=== PATIENT | male | born 1990 | race Caucasian/White ===

== ENCOUNTER 2019-07-02 08:22 | Emergency (ER) | payer OTHER ==
--- OUTSIDE RECORDS SUMMARY | 2019-07-02 08:36 | XMS REPORT | Continuity of Care Document ---
:1990 External Reference #:[id number] Author Name Alexandra Alfonso DO Address [address] [place] [address] Care Team Providers Name Role Phone Cindy Mohr MD - Family Care Team Information [place] Supervisor [phone] Medicine Gerry Pierre NP - Nurse Care Team Information [place] Supervisor [phone] Practitioner Problems Active Problems Provider Date Polycythemia vera (clinical) German Tavera DO Onset: 04/04/2018 Secondary polycythemia Alexandra Alfonso DO Onset: 03/25/2019 Low back pain Cindy Mohr MD Onset: 02/02/2015 Hyperlipidemia Rhina Rivero M.D. Onset: 08/15/2017 Testicular hypofunction Rhina Rivero M.D. Onset: 08/15/2017 Localized, primary osteoarthritis of the Alvaro, Adriane, PA Onset: 04/17/2018 hand Abuse of steroids German Tavera DO Onset: 04/25/2018 Hypertensive chronic kidney disease with German Tavera DO Onset: 2017 stage 1 through stage 4 chronic kidney disease, or unspecified chronic kidney disease Other herpesviral infection Gerry Pierre FNP Onset: 05/15/2018 Essential hypertension Gerry Pierre FNP Onset: 11/11/2018 Vitamin B deficiency Alexandra Alfonso DO Onset: 04/14/2019 Vitamin deficiency Alexandra Alfonso DO Onset: 04/14/2019 Hypertrophy of nasal turbinates Alexandra Alfonso DO Onset: 05/27/2019 Resolved Problems Chest pain Isatu Hollis M.D. Onset: 01/05/2019 Resolved: 05/07/2019 Human immunodeficiency virus counseling Isatu Hollis M.D. Onset: 01/05/2019 Resolved: 05/07/2019 Social History Type Date Description Comments Sex Unknown Tobacco Use Start: Unknown Currently smokes 1-5 Cigarettes Daily ETOH Use Denies alcohol use Recreational Drug Use Denies Drug Use Tobacco Use Start: Unknown Light tobacco smoker (10 or fewer cigarettes/day) Smoking Status Reviewed: 01/05/19 Light tobacco smoker (10 or fewer cigarettes/day) Allergies, Adverse Reactions, Alerts Active Allergies Reaction Severity Comments Date NKDA 01/24/2015 Pollen 03/25/2018 Medications Active Medications SIG Qnty Indications Ordering Provider Date Valtrex take one tab by 14tabs B00.89 Gabby, 07/09/2018 1gm Tablets mouth twice daily Gerry, for 7 days as [employer] needed for outbreaks Truvada 1 by mouth every 30tabs Isatu Hollis M.D. 04/07/2018 200-300mg day Tablets Medications Administered in Office Medication SIG Qnty Indications Ordering Provider Date Vitamin B12 Injection 1000 StefaniAlexandra chauhan, DO 04/14/2019 mcg/Ml Injection Immunizations CPT Code Status Date Vaccine Lot # [id number] Given 03/09/2013 Gardasil 54936 Given 07/30/2012 Gardasil [id number] Given 07/19/2011 Gardasil Vital Signs Date Vital Result Comment 05/27/2019 10:44am BP Systolic 135 mmHg BP Diastolic 92 mmHg Body Temperature 98.3 F Heart Rate 101 /min Respiratory Rate 18 /min Weight 219.12 lb Pain Level 0 O2 % BldC Oximetry 97 % 04/14/2019 4:02pm BP Systolic 138 mmHg BP Diastolic 84 mmHg Body Temperature 98.0 F Heart Rate 88 /min Respiratory Rate 18 /min Weight 213.50 lb Pain Level 0 O2 % BldC Oximetry 97 % Results Test Acquired Date Facility Test Result H/L Range Note CBC 05/27/2019 [facility] White Blood 8.0 K/uL Normal 3.4-10.5 1 W/Automated [address] [place] [address] [phone] Red Blood Count 6.63 M/uL High 4.20-5.80 Hemoglobin 17.4 gm/dL High 12.8-17.0 Hematocrit 55.1 % High 38.0-48.0 Mean Cell Volume 83.1 fl Normal 80.0-96.0 Mean Corpuscular HGB 26.2 pg Low 27.0-33.0 Mean Corpuscular HGB Conc 31.6 g/dL Low 31.7-36.0 Platelet Count 346 K/uL Normal 155-360 Red Cell Distri Width SD 46.5 fl Normal 36-51 Red Cell Distri Width %CV 17.2 % High 11.6-15.8 Mean Platelet Volume 10.2 fl Normal 6.6-10.6 Neut% 57.9 % Normal 33.0-73.0 Lymph % 26.7 % Normal 20.0-42.0 [place] % 11.4 % High 0.0-10.0 Eo% 3.0 % Normal 0.0-6.6 Bas% 0.6 % Normal 0.0-1.1 Immature Grans 0.4 % Normal 0.0-5.0 NRBC % 0.0 /100WBC < 10/ 100 WBC Neut# 4.60 K/uL Normal 1.8-7.0 Lymph # 2.12 K/uL Normal 1.0-4.0 [place] # 0.91 K/uL High 0.0-0.8 Eos # 0.24 K/uL Normal 0.0-0.5 Baso # 0.05 K/uL Normal 0.0-0.1 Immature Grans Absolute 0.03 K/uL NRBC # 0.00 K/uL Laboratory test 05/27/2019 [facility] Sedimentation Rate <pending> finding [address] [place] [address] [phone] Erythropoietin (Epo), Serum 9.7 mIU/mL 2.6-18.5 2 LDH 145 U/L Normal 87-241 Thyroid Stim Hormone 2.67 uIU/mL Normal 0.30-4.20 Sedimentation Rate,Manual 0 mm/hr Normal 0-15 CBC W/Automated 05/07/2019 [facility] White Blood 8.6 K/uL Normal 3.4-10.5 [address] [place] [address] [phone] Red Blood Count 6.22 M/uL High 4.20-5.80 Hemoglobin 16.4 gm/dL Normal 12.8-17.0 Hematocrit 50.9 % High 38.0-48.0 Mean Cell Volume 81.8 fl Normal 80.0-96.0 Mean Corpuscular HGB 26.4 pg Low 27.0-33.0 Mean Corpuscular HGB Conc 32.2 g/dL Normal 31.7-36.0 Platelet Count 383 K/uL High 155-360 Red Cell Distri Width SD 38.8 fl Normal 36-51 Red Cell Distri Width %CV 13.4 % Normal 11.6-15.8 Mean Platelet Volume 9.4 fl Normal 6.6-10.6 Neut% 59.3 % Normal 33.0-73.0 Lymph % 27.8 % Normal 20.0-42.0 [place] % 8.4 % Normal 0.0-10.0 Eo% 3.4 % Normal 0.0-6.6 Bas% 0.5 % Normal 0.0-1.1 Immature Grans 0.6 % Normal 0.0-5.0 NRBC % 0.0 /100WBC < 10/ 100 WBC Neut# 5.12 K/uL Normal 1.8-7.0 Lymph # 2.40 K/uL Normal 1.0-4.0 [place] # 0.72 K/uL Normal 0.0-0.8 Eos # 0.29 K/uL Normal 0.0-0.5 Baso # 0.04 K/uL Normal 0.0-0.1 Immature Grans Absolute 0.05 K/uL NRBC # 0.00 K/uL [facility] 05/07/2019 [facility] Glucose 102 mg/dL Normal 74-106 Metabolic Panel [address] [place] [address] [phone] BUN 9 mg/dL Normal 7-18 Creatinine 1.3 mg/dL Normal 0.6-1.3 Glom Filtration Rate, Estimate >60 mL/min >60 If >60 mL/min >60 4 BUN/Creat 6.9 ratio Sodium 140 mmol/L Normal 136-145 Potassium 3.9 mmol/L Normal 3.5-5.1 Chloride 110 mmol/L High 98-107 Carbon Dioxide 26 mmol/L Normal 21-32 Anion Gap 4 mEq/L Low 8-16 Calcium 8.4 mg/dL Low 8.5-10.1 Total Protein 6.6 g/dL Normal 6.4-8.2 Albumin 3.5 g/dL Normal 3.4-5.0 Globulin 3.1 g/dL Normal 1.9-4.3 Alb/Glob 1.1 ratio Bilirubin,Total 0.6 mg/dL Normal 0.2-1.0 Sgot/Ast 29 U/L Normal 15-37 SGPT/Alt 91 U/L High 12-78 Alkaline Phosphatase 46 U/L Normal 45-117 Laboratory test finding 05/07/2019 [facility] Troponin-I < 0.015 ng/mL 5 [address] [place] [address] [phone] Thyroid Stim Hormone 2.09 uIU/mL Normal 0.30-4.20 CBC 04/14/2019 [facility] White Blood Count 9.5 K/uL Normal 3.4-10.5 6 [address] [place] [address] [phone] Red Blood Count 5.80 M/uL Normal 4.20-5.80 Hemoglobin 16.0 gm/dL Normal 12.8-17.0 Hematocrit 49.1 % High 38.0-48.0 Mean Cell Volume 84.7 fl Normal 80.0-96.0 Mean Corpuscular HGB 27.6 pg Normal 27.0-33.0 Mean Corpuscular HGB Conc 32.6 g/dL Normal 31.7-36.0 Platelet Count 354 K/uL Normal 155-360 Red Cell Distri Width SD 37.0 fl Normal 36-51 Red Cell Distri Width %CV 12.3 % Normal 11.6-15.8 Mean Platelet Volume 10.1 fl Normal 6.6-10.6 NRBC % 0.0 /100WBC < 10/ 100 WBC Iron-Tibc-%Sat 04/14/2019 [facility] Serum Iron 23 g/dL Low 65-175 [address] [place] [address] [phone] Total Iron Binding Capacity 396 g/dL Normal 250-450 Transferrin %Saturation 6 % Low 12-57 Vitamin B12 And 04/14/2019 [facility] Vitamin B12 582 pg/mL Normal 193-986 Folate [address] [place] [address] [phone] Folic Acid 9.9 ng/mL Normal 3.1-17.5 Laboratory test 04/14/2019 [facility] Ferritin 10 ng/mL Low 26-388 finding [address] [place] [address] [phone] Comprehensive 04/14/2019 [facility] Glucose 112 mg/dL High 74-106 Metabolic Panel [address] [place] [address] [phone] BUN 9 mg/dL Normal 7-18 Creatinine 1.5 mg/dL High 0.6-1.3 Glom Filtration Rate, Estimate 58 mL/min >60 If >60 mL/min >60 7 BUN/Creat 6.0 ratio Sodium 140 mmol/L Normal 136-145 Potassium 3.4 mmol/L Low 3.5-5.1 Chloride 108 mmol/L High 98-107 Carbon Dioxide 27 mmol/L Normal 21-32 Anion Gap 5 mEq/L Low 8-16 Calcium 8.3 mg/dL Low 8.5-10.1 Total Protein 6.8 g/dL Normal 6.4-8.2 Albumin 3.7 g/dL Normal 3.4-5.0 Globulin 3.1 g/dL Normal 1.9-4.3 Alb/Glob 1.2 ratio Bilirubin,Total 0.3 mg/dL Normal 0.2-1.0 Sgot/Ast 18 U/L Normal 15-37 SGPT/Alt 32 U/L Normal 12-78 Alkaline Phosphatase 50 U/L Normal 45-117 Laboratory test 03/25/2019 [facility] Gamma Glutamyl 32 U/L Normal 5-85 8 finding [address] [place] [address] [phone] Erythropoietin (Epo), Serum 17.8 mIU/mL 2.6-18.5 9 Comprehensive 03/25/2019 [facility] Glucose 99 mg/dL Normal 74-106 Metabolic Panel [address] [place] [address] [phone] BUN 11 mg/dL Normal 7-18 Creatinine 1.3 mg/dL Normal 0.6-1.3 Glom Filtration Rate, Estimate >60 mL/min >60 If >60 mL/min >60 10 BUN/Creat 8.4 ratio Sodium 137 mmol/L Normal 136-145 Potassium 3.9 mmol/L Normal 3.5-5.1 Chloride 107 mmol/L Normal 98-107 Carbon Dioxide 25 mmol/L Normal 21-32 Anion Gap 5 mEq/L Low 8-16 Calcium 8.7 mg/dL Normal 8.5-10.1 Total Protein 6.9 g/dL Normal 6.4-8.2 Albumin 3.8 g/dL Normal 3.4-5.0 Globulin 3.1 g/dL Normal 1.9-4.3 Alb/Glob 1.2 ratio Bilirubin,Total 0.4 mg/dL Normal 0.2-1.0 Sgot/Ast 22 U/L Normal 15-37 SGPT/Alt 60 U/L Normal 12-78 Alkaline Phosphatase 52 U/L Normal 45-117 Laboratory 03/25/2019 [facility] Vitamin 35.9 30.0-100.0 11 test finding [address] D,25-Hydroxy ng/[place] [address] [phone] Vitamin B12 03/25/2019 [facility] Vitamin B12 492 Normal 193-[address] pg/[place] [address] [phone] Folic Acid 7.5 ng/mL Normal 3.1-17.5 CBC W/Automated 03/25/2019 [facility] White Blood 11.1 K/uL High 3.4-10.[address] [place] [address] [phone] Red Blood Count 5.69 M/uL Normal 4.20-5.80 Hemoglobin 16.0 gm/dL Normal 12.8-17.0 Hematocrit 50.0 % High 38.0-48.0 Mean Cell Volume 87.9 fl Normal 80.0-96.0 Mean Corpuscular HGB 28.1 pg Normal 27.0-33.0 Mean Corpuscular HGB Conc 32.0 g/dL Normal 31.7-36.0 Platelet Count 268 K/uL Normal 155-360 Red Cell Distri Width SD 39.4 fl Normal 36-51 Red Cell Distri Width %CV 12.2 % Normal 11.6-15.8 Mean Platelet Volume 10.6 fl Normal 6.6-10.6 Neut% 70.9 % Normal 33.0-73.0 Lymph % 17.5 % Low 20.0-42.0 [place] % 8.5 % Normal 0.0-10.0 Eo% 2.3 % Normal 0.0-6.6 Bas% 0.4 % Normal 0.0-1.1 Immature Grans 0.4 % Normal 0.0-5.0 NRBC % 0.0 /100WBC < 10/ 100 WBC Neut# 7.88 K/uL High 1.8-7.0 Lymph # 1.94 K/uL Normal 1.0-4.0 [place] # 0.94 K/uL High 0.0-0.8 Eos # 0.26 K/uL Normal 0.0-0.5 Baso # 0.04 K/uL Normal 0.0-0.1 Immature Grans Absolute 0.04 K/uL NRBC # 0.00 K/uL Reticulocyte 03/25/2019 [facility] Retic 28.5 pg Normal 27.9-37.0 Count,Automated [address] [facility] [place] [place] [address] [phone] Retic % 1.7 % Normal 0.8-2.1 Absolute Retic 97 K/uL High 24-84 Immature Retic Fraction 16.1 % High 2.9-15.5 Laboratory test 03/25/2019 [facility] Ferritin 13 ng/mL Low 26-388 finding [address] [place] [address] [phone] Iron-Tibc-%Sat 03/25/2019 [facility] Serum Iron 32 g/dL Low 65-175 [address] [place] [address] [phone] Total Iron Binding Capacity 456 g/dL High 250-450 Transferrin %Saturation 7 % Low 12-57 Laboratory test 03/25/2019 [facility] LDH 147 U/L Normal 87-241 finding [address] [place] [address] [phone] Testosterone,Free 03/25/2019 [facility] Testostero >1500 High 264-916 12 /Weakly Bound [address] ne,Serum ng/[place] [address] [phone] Testosterone,%Free/Weakly BND 68.3 % High 9.0-46.0 13 Testosterone,Free Weakly Bound (SEE NOTE) ng/dL 40.0-250.0 14 Laboratory test 03/19/2019 [facility] Ferritin 13 ng/mL Low 26-388 15, 16 finding [address] [place] [address] [phone] Iron-Tibc-%Sat 03/19/2019 [facility] Serum Iron 33 g/dL Low 65-175 [address] [place] [address] [phone] Total Iron Binding Capacity 438 g/dL Normal 250-450 Transferrin %Saturation 8 % Low 12-57 Laboratory test 03/19/2019 [facility] Ferritin <pending> finding [address] [place], [place] [address] [phone] CBC W/Automated 03/19/2019 [facility] White Blood 6.3 K/uL Normal 3.4-1 Diff [address] [place] Count 0.5 [place] [address] [phone] Red Blood Count 5.99 M/uL High 4.20-5.80 Hemoglobin 17.4 gm/dL High 12.8-17.0 Hematocrit 53.8 % High 38.0-48.0 Mean Cell Volume 89.8 fl Normal 80.0-96.0 Mean Corpuscular HGB 29.0 pg Normal 27.0-33.0 Mean Corpuscular HGB Conc 32.3 g/dL Normal 31.7-36.0 Platelet Count 369 K/uL High 155-360 Red Cell Distri Width SD 41.1 fl Normal 36-51 Red Cell Distri Width %CV 12.4 % Normal 11.6-15.8 Mean Platelet Volume 10.2 fl Normal 6.6-10.6 Neut% 58.4 % Normal 33.0-73.0 Lymph % 29.3 % Normal 20.0-42.0 [place] % 9.0 % Normal 0.0-10.0 Eo% 2.5 % Normal 0.0-6.6 Bas% 0.5 % Normal 0.0-1.1 Immature Grans 0.3 % Normal 0.0-5.0 NRBC % 0.0 /100WBC < 10/ 100 WBC Neut# 3.69 K/uL Normal 1.8-7.0 Lymph # 1.85 K/uL Normal 1.0-4.0 [place] # 0.57 K/uL Normal 0.0-0.8 Eos # 0.16 K/uL Normal 0.0-0.5 Baso # 0.03 K/uL Normal 0.0-0.1 Immature Grans Absolute 0.02 K/uL NRBC # 0.00 K/uL Hemoglobin/Hematocrit 03/12/2019 [facility] Hemoglobin 17.8 High 12.8-17.[address] gm/[place] [address] [phone] Hematocrit 55.3 % High 38.0-48.0 Laboratory test 03/05/2019 [facility] Ferritin 16 ng/mL Low 26-388 finding [address] [place] [address] [phone] Iron-Tibc-%Sat 03/05/2019 [facility] Serum Iron 28 g/dL Low 65-175 [address] [place], [place] [address] [phone] Total Iron Binding Capacity 404 g/dL Normal 250-450 Transferrin %Saturation 7 % Low 12-57 HIV Screen 4TH 03/04/2019 [facility] HIV Screen Non Non 17, 18 Gen Reflex [address] 4th [place] [address] Generation [phone] wRfx Hepatitis 03/04/2019 [facility] Hepatitis A Negative Negative Evaluation [address] [place] [address] [phone] HBsAg Screen [Ref Lab] Negative Negative Hepatitis B Core IgM Negative Negative HCV Signal/Cutoff ratio 0.1 s/corat 0.0-0.9 19 Liver Function 03/04/2019 [facility] Total Protein 7.0 g/dL Normal 6.4-8.[address] [place], [place] [address] [phone] Albumin 3.6 g/dL Normal 3.4-5.0 Globulin 3.4 g/dL Normal 1.9-4.3 Alb/Glob 1.1 ratio Bilirubin,Total 0.5 mg/dL Normal 0.2-1.0 Bilirubin,Direct 0.1 mg/dL Normal 0.0-0.2 Bilirubin,Indirect 0.4 mg/dL Normal 0.0-0.9 Sgot/Ast 53 U/L High 15-37 SGPT/Alt 106 U/L High 12-78 Alkaline Phosphatase 50 U/L Normal 45-117 CBC W/Automated 03/04/2019 [facility] White Blood 10.8 K/uL High 3.4-10.[address] [place] [address] [phone] Red Blood Count 6.15 M/uL High 4.20-5.80 Hemoglobin 18.0 gm/dL High 12.8-17.0 Hematocrit 56.1 % High 38.0-48.0 Mean Cell Volume 91.2 fl Normal 80.0-96.0 Mean Corpuscular HGB 29.3 pg Normal 27.0-33.0 Mean Corpuscular HGB Conc 32.1 g/dL Normal 31.7-36.0 Platelet Count 343 K/uL Normal 155-360 Red Cell Distri Width SD 41.1 fl Normal 36-51 Red Cell Distri Width %CV 12.3 % Normal 11.6-15.8 Mean Platelet Volume 9.5 fl Normal 6.6-10.6 Neut% 76.5 % High 33.0-73.0 Lymph % 15.1 % Low 20.0-42.0 [place] % 6.5 % Normal 0.0-10.0 Eo% 1.2 % Normal 0.0-6.6 Bas% 0.2 % Normal 0.0-1.1 Immature Grans 0.5 % Normal 0.0-5.0 NRBC % 0.0 /100WBC < 10/ 100 WBC Neut# 8.30 K/uL High 1.8-7.0 Lymph # 1.63 K/uL Normal 1.0-4.0 [place] # 0.70 K/uL Normal 0.0-0.8 Eos # 0.13 K/uL Normal 0.0-0.5 Baso # 0.02 K/uL Normal 0.0-0.1 Immature Grans Absolute 0.05 K/uL NRBC # 0.00 K/uL Comprehensive Metabolic 03/04/2019 [facility] Glucose 110 mg/dL High 74-[address] [place] [address] [phone] BUN 8 mg/dL Normal 7-18 Creatinine 1.5 mg/dL High 0.6-1.3 Glom Filtration Rate, Estimate 58 mL/min >60 If >60 mL/min >60 20 BUN/Creat 5.3 ratio Sodium 138 mmol/L Normal 136-145 Potassium 3.8 mmol/L Normal 3.5-5.1 Chloride 105 mmol/L Normal 98-107 Carbon Dioxide 25 mmol/L Normal 21-32 Anion Gap 8 mEq/L Normal 8-16 Calcium 8.7 mg/dL Normal 8.5-10.1 Chlam/GC/Trichomonas 03/04/2019 [facility] Ur Trichomonas NEGATIVE Negative PCR, Ur [address] vaginalis,[place] [address] [phone] Ur Chlamydia trachomatis,PCR Negative Negative Ur Neisseria gonorrhoeae,PCR Negative Negative 21 CBC W/Automated 02/19/2019 [facility] White 5.9 K/uL Normal 3.4-10.[address] [place] [address] Count [phone] Red Blood Count 6.02 M/uL High 4.20-5.80 Hemoglobin 18.4 gm/dL High 12.8-17.0 Hematocrit 54.9 % High 38.0-48.0 Mean Cell Volume 91.2 fl Normal 80.0-96.0 Mean Corpuscular HGB 30.6 pg Normal 27.0-33.0 Mean Corpuscular HGB Conc 33.5 g/dL Normal 31.7-36.0 Platelet Count 331 K/uL Normal 155-360 Red Cell Distri Width SD 41.8 fl Normal 36-51 Red Cell Distri Width %CV 12.5 % Normal 11.6-15.8 Mean Platelet Volume 9.5 fl Normal 6.6-10.6 Neut% 58.0 % Normal 33.0-73.0 Lymph % 27.3 % Normal 20.0-42.0 [place] % 9.9 % Normal 0.0-10.0 Eo% 4.0 % Normal 0.0-6.6 Bas% 0.5 % Normal 0.0-1.1 Immature Grans 0.3 % Normal 0.0-5.0 NRBC % 0.0 /100WBC < 10/ 100 WBC Neut# 3.44 K/uL Normal 1.8-7.0 Lymph # 1.62 K/uL Normal 1.0-4.0 [place] # 0.59 K/uL Normal 0.0-0.8 Eos # 0.24 K/uL Normal 0.0-0.5 Baso # 0.03 K/uL Normal 0.0-0.1 Immature Grans Absolute 0.02 K/uL NRBC # 0.00 K/uL Comprehensive Metabolic 02/19/2019 [facility] Glucose 118 mg/dL High 74-[address] [place] [address] [phone] BUN 9 mg/dL Normal 7-18 Creatinine 1.3 mg/dL Normal 0.6-1.3 Glom Filtration Rate, Estimate >60 mL/min >60 If >60 mL/min >60 23 BUN/Creat 6.9 ratio Sodium 139 mmol/L Normal 136-145 Potassium 3.8 mmol/L Normal 3.5-5.1 Chloride 110 mmol/L High 98-107 Carbon Dioxide 23 mmol/L Normal 21-32 Anion Gap 6 mEq/L Low 8-16 Calcium 8.7 mg/dL Normal 8.5-10.1 Total Protein 6.9 g/dL Normal 6.4-8.2 Albumin 3.6 g/dL Normal 3.4-5.0 Globulin 3.3 g/dL Normal 1.9-4.3 Alb/Glob 1.1 ratio Bilirubin,Total 0.4 mg/dL Normal 0.2-1.0 Sgot/Ast 40 U/L High 15-37 SGPT/Alt 97 U/L High 12-78 Alkaline Phosphatase 58 U/L Normal 45-117 Laboratory test 02/19/2019 [facility] Troponin-I < 0.015 [address] ng/[place] [address] [phone] CBC W/Automated 01/06/2019 [facility] White Blood 9.4 K/uL Normal 3.4-[address] Count 0.5 [place] [address] [phone] Red Blood Count 5.27 M/uL Normal 4.20-5.80 Hemoglobin 16.4 gm/dL Normal 12.8-17.0 Hematocrit 46.0 % Normal 38.0-48.0 Mean Cell Volume 87.3 fl Normal 80.0-96.0 Mean Corpuscular HGB 31.1 pg Normal 27.0-33.0 Mean Corpuscular HGB Conc 35.7 g/dL Normal 31.7-36.0 Platelet Count 284 K/uL Normal 155-360 Red Cell Distri Width SD 43.0 fl Normal 36-51 Red Cell Distri Width %CV 13.7 % Normal 11.6-15.8 Mean Platelet Volume 9.8 fl Normal 6.6-10.6 Neut% 65.7 % Normal 33.0-73.0 Lymph % 23.7 % Normal 20.0-42.0 [place] % 8.3 % Normal 0.0-10.0 Eo% 1.8 % Normal 0.0-6.6 Bas% 0.3 % Normal 0.0-1.1 Immature Grans 0.2 % Normal 0.0-5.0 NRBC % 0.0 /100WBC < 10/ 100 WBC Neut# 6.17 K/uL Normal 1.8-7.0 Lymph # 2.23 K/uL Normal 1.0-4.0 [place] # 0.78 K/uL Normal 0.0-0.8 Eos # 0.17 K/uL Normal 0.0-0.5 Baso # 0.03 K/uL Normal 0.0-0.1 Immature Grans Absolute 0.02 K/uL NRBC # 0.00 K/uL Iron-Tibc-%Sat 01/06/2019 [facility] Serum Iron 56 g/dL Low 65-175 [address] [place], [place] [address] [phone] Total Iron Binding Capacity 283 g/dL Normal 250-450 Transferrin %Saturation 20 % Normal 12-57 Laboratory test 01/06/2019 [facility] Ferritin 168 ng/mL Normal 26-388 finding [address] [place], [place] [address] [phone] Comprehensive 01/06/2019 [facility] Glucose 108 mg/dL High 74-106 Metabolic Panel [address] [place] [address] [phone] BUN 13 mg/dL Normal 7-18 Creatinine 1.1 mg/dL Normal 0.6-1.3 Glom Filtration Rate, Estimate >60 mL/min >60 If >60 mL/min >60 26 BUN/Creat 11.8 ratio Sodium 140 mmol/L Normal 136-145 Potassium 3.3 mmol/L Low 3.5-5.1 Chloride 107 mmol/L Normal 98-107 Carbon Dioxide 27 mmol/L Normal 21-32 Anion Gap 6 mEq/L Low 8-16 Calcium 8.6 mg/dL Normal 8.5-10.1 Total Protein 7.1 g/dL Normal 6.4-8.2 Albumin 3.9 g/dL Normal 3.4-5.0 Globulin 3.2 g/dL Normal 1.9-4.3 Alb/Glob 1.2 ratio Bilirubin,Total 0.8 mg/dL Normal 0.2-1.0 Sgot/Ast 19 U/L Normal 15-37 SGPT/Alt 44 U/L Normal 12-78 Alkaline Phosphatase 58 U/L Normal 45-117 1 D75.1 F55.3 E56.8 2 [employer] DxI 800 Immunoassay System Values obtained with different assay methods or kits cannot be used interchangeably. Results cannot be interpreted as absolute evidence of the presence or absence of malignant disease. Performed at: - [facility] [id number] Power Technician: Amarilys Espinoza MD, Phone: [phone] POLYCYTHEMIA, HEAD/FACE PRESSURE 4 Note: Persistent reduction for 3 months or more in an eGFR <60 mL/min/1.73 m2 defines CKD. Patients with eGFR values >/=60 mL/min/1.73 m2 may also have CKD if evidence of persistent proteinuria is present. The original MDRD equation for estimated GFR is not valid for patients less than 18 years of age. Additional information may be found at www.kdoqi.org. 5 0.0 - 0.045 ng/mL: Normal 0.046 - 0.5 ng/mL: Suggestive 0.6 - 1.5 ng/mL: Consistent 6 D75.1 7 Note: Persistent reduction for 3 months or more in an eGFR <60 mL/min/1.73 m2 defines CKD. Patients with eGFR values >/=60 mL/min/1.73 m2 may also have CKD if evidence of persistent proteinuria is present. The original MDRD equation for estimated GFR is not valid for patients less than 18 years of age. Additional information may be found at www.[email or web address]. 8 D45 R07.89 R22.9 9 [employer] DxI 800 Immunoassay System Values obtained with different assay methods or kits cannot be used interchangeably. Results cannot be interpreted as absolute evidence of the presence or absence of malignant disease. Performed at: [facility] [id number] Power Technician: Amarilys Espinoza MD, Phone: [phone] Performed at: [facility] [id number] Power Technician: Rashaun Lorenzo MD, Phone: [phone] 10 Note: Persistent reduction for 3 months or more in an eGFR <60 mL/min/1.73 m2 defines CKD. Patients with eGFR values >/=60 mL/min/1.73 m2 may also have CKD if evidence of persistent proteinuria is present. The original MDRD equation for estimated GFR is not valid for patients less than 18 years of age. Additional information may be found at www.[email or web address]. 11 Vitamin D deficiency has been defined by the [place] [employer] and an Endocrine Society practice guideline as a level of serum 25-OH vitamin D less than 20 ng/mL (1,2). The Endocrine Society went on to further define vitamin D insufficiency as a level between 21 and 29 ng/mL (2). 1. IOM ([place] [employer]). 2010. Dietary reference intakes for calcium and D. [place]: The National Academies Press. 2. Bola MF, Hair NC, Loy DRISCOLL, et al. Evaluation, treatment, and prevention of vitamin D deficiency: an Endocrine Society clinical practice guideline. JCEM. 2010; 96(7):1911-30. Performed at: [facility] [id number] Power Technician: Amarilys Espinoza MD, Phone: [phone] 12 Adult male reference interval is based on a population of healthy nonobese males (BMI <30) between 19 and 39 years old. Eric, et.al. JCEM 2017,102;9112-7245. PMID: 92624406. 13 Results verified by repeat testing This test was developed and its performance characteristics determined by [employer]. It has not been cleared or approved by the Food and Drug Administration. 14 >999.9 Calculated value greater than reporting limitations. [address] ALFONSO 17 Z71.7 (R74.0 D45) 18 Performed at: [facility] [address] [id number] Power Technician: Amarilys Espinoza MD, Phone: [phone] 19 INFCE Result Units: s/co ratio Negative: < 0.8 Indeterminate: 0.8 - 0.9 Positive: > 0.9 The CDC recommends that a positive HCV antibody result be followed up with a HCV Nucleic Acid Amplification test (641004). Performed at: - [facility] [address] [id number] Power Technician: Amarilys Espinoza MD, Phone: [phone] 20 Note: Persistent reduction for 3 months or more in an eGFR <60 mL/min/1.73 m2 defines CKD. Patients with eGFR values >/=60 mL/min/1.73 m2 may also have CKD if evidence of persistent proteinuria is present. The original MDRD equation for estimated GFR is not valid for patients less than 18 years of age. Additional information may be found at www.kdoqi.org. 21 A negative result for either C. trachomatis and/or N. gonorrhoeae does not preclued an infection because results are dependent on adequate specimen collection, absence of inhibitors, and sufficient DNA to be detected. 22 CP,SOB, PRESSURE IN NECK 23 Note: Persistent reduction for 3 months or more in an eGFR <60 mL/min/1.73 m2 defines CKD. Patients with eGFR values >/=60 mL/min/1.73 m2 may also have CKD if evidence of persistent proteinuria is present. The original MDRD equation for estimated GFR is not valid for patients less than 18 years of age. Additional information may be found at www.kdoqi.org. 24 0.0 - 0.045 ng/mL: Normal 0.046 - 0.5 ng/mL: Suggestive 0.6 - 1.5 ng/mL: Consistent 25 D45 26 Note: Persistent reduction for 3 months or more in an eGFR <60 mL/min/1.73 m2 defines CKD. Patients with eGFR values >/=60 mL/min/1.73 m2 may also have CKD if evidence of persistent proteinuria is present. The original MDRD equation for estimated GFR is not valid for patients less than 18 years of age. Additional information may be found at www.kdoqi.org. 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 Alexandra Alfonso, DO 04/14/2019 E53.9 Vitamin B deficiency Alexandra Alfonso, DO 04/14/2019 E56.8 Vitamin deficiency Alexandra Alfonso, DO 03/25/2019 D75.1 Secondary polycythemia Alexandra Alfonso, DO 03/25/2019 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 01/05/2019 Anita Polycythemia vera Isatu Hollis M.D. 01/05/2019 F32.89 Other specified depressive episodes Isatu Hollis M.D. 01/05/2019 Z71.7 Human immunodeficiency virus [HIV] Isatu Hollis M.D. counseling Plan of Treatment Future Appointment(s):06/05/2019 8:30 am - Infusion Chair 7 at Infusion Hgadzc5307/07/2019 1:30 pm - Gerry Pierre FNP at [facility] Functional Status Functional Condition Comment Date Status Independent with all ADL's Active Mental Status Description No Information Available Referrals Refer to Dr Reason for Referral Status Appt Date Steven Roy MD CHANGE IN VISION Sent 06/01/2019 [address] [place] [address] [phone] Wild Cates MD FACC Closed 03/10/[address] [place] [address] [phone]
--- OUTSIDE RECORDS SUMMARY | 2019-07-02 08:36 | XMS REPORT | Continuity of Care Document ---
:1990 External Reference #:[id number] Author Name Steven Roy MD Address [address] [place] [address] Care Team Providers Name Role Phone Cindy Mohr MD - Family Care Team Information Security Inspector [phone] Medicine Gerry Pierre NP - Nurse Care Team Information Security Inspector Practitioner Problems Active Problems Provider Date Polycythemia vera (clinical) German Tavera DO Onset: 04/04/2018 Secondary polycythemia Alexandra Alfonso DO Onset: 03/25/2019 Low back pain Cindy Mohr MD Onset: 02/02/2015 Hyperlipidemia Rhina Rivero M.D. Onset: 08/15/2017 Testicular hypofunction Rhina Rivero M.D. Onset: 08/15/2017 Localized, primary osteoarthritis of the AlvaroAdriane, PA Onset: 04/17/2018 hand Abuse of steroids [...] (10 or fewer cigarettes/day) Smoking Status Reviewed: 06/01/19 Light tobacco smoker (10 or fewer cigarettes/day) Allergies, Adverse Reactions, Alerts Active Allergies Reaction Severity Comments Date NKDA 01/24/2015 Pollen 03/25/2018 Medications Active Medications SIG Qnty Indications Ordering Provider Date Valtrex take one tab by 14tabs B00.89 Gabby, 07/09/2018 1gm Tablets mouth twice daily Gerry, for 7 days as SAMPLE PATTERNMAKER needed for outbreaks Truvada 1 by mouth every 30tabs Isatu Hollis M.D. 04/07/2018 200-300mg day Tablets Medications Administered in Office Medication SIG Qnty Indications Ordering Provider Date Vitamin B12 Injection 1000 Alexandra Alfonso, DO 04/14/2019 mcg/Ml Injection Immunizations CPT Code Status Date Vaccine Lot # [id number] Given 03/09/2013 Gardasil 80669 Given 07/30/2012 Gardasil 08866 Given 07/19/2011 Gardasil Vital Signs Date Vital [...] 1 W/Automated [address] [place] [address] [phone] Red Blood Count 6.63 M/uL High 4.20-5.80 [...] 33.0-73.0 Lymph % 26.7 % Normal 20.0-42.0 [place] % 11.4 % High 0.0-10.0 Eo% 3.0 % Normal 0.0-6.6 Bas% 0.6 % Normal 0.0-1.1 Immature Grans 0.4 % Normal 0.0-5.0 NRBC % 0.0 /100WBC < 10/ 100 WBC Neut# 4.60 K/uL Normal 1.8-7.0 Lymph # 2.12 K/uL Normal 1.0-4.0 [place] # 0.91 K/uL High 0.0-0.8 Eos # 0.24 K/uL Normal 0.0-0.5 Baso # 0.05 K/uL Normal 0.0-0.1 Immature Grans Absolute 0.03 K/uL NRBC # 0.00 K/uL Laboratory test 05/27/2019 [facility] Sedimentation Rate <pending> finding [address] [place] [address] [phone] Erythropoietin (Epo), Serum 9.7 mIU/mL 2.6-18.5 2 LDH 145 U/L Normal 87-241 Thyroid Stim Hormone 2.67 uIU/mL Normal 0.30-4.20 Sedimentation Rate,Manual 0 mm/hr Normal 0-15 CBC W/Automated 05/07/2019 [facility] White Blood 8.6 K/uL Normal 3.4-10.[address] [place] [address] [phone] Red Blood Count 6.22 M/uL High 4.20-5.80 [...] 33.0-73.0 Lymph % 27.8 % Normal 20.0-42.0 [place]oughton % 8.4 % Normal 0.0-10.0 Eo% 3.4 % Normal 0.0-6.6 Bas% 0.5 % Normal 0.0-1.1 Immature Grans 0.6 % Normal 0.0-5.0 NRBC % 0.0 /100WBC < 10/ 100 WBC Neut# 5.12 K/uL Normal 1.8-7.0 Lymph # 2.40 K/uL Normal 1.0-4.0 [place]oughton # 0.72 K/uL Normal 0.0-0.8 Eos # 0.29 K/uL Normal 0.0-0.5 Baso # 0.04 K/uL Normal 0.0-0.1 Immature Grans Absolute 0.05 K/uL NRBC # 0.00 K/uL [facility] 05/07/2019 [facility] Glucose 102 mg/dL Normal 74-106 Metabolic Panel [address] [place], [place] [address] [phone] BUN 9 mg/dL Normal 7-18 Creatinine 1.3 [...] U/L Normal 45-117 Laboratory test finding 05/07/2019 [facility] Troponin-I < 0.015 ng/mL 5 [address] [place] [address] [phone] Thyroid Stim Hormone 2.09 uIU/mL Normal 0.30-4.20 CBC 04/14/2019 [facility] White Blood Count 9.5 K/uL Normal 3.4-10.5 6 [address] [place] [address] [phone] Red Blood Count 5.80 M/uL Normal 4.20-5.80 [...] /100WBC < 10/ 100 WBC Iron-Tibc-%Sat 04/14/2019 [facility] Serum Iron 23 g/dL Low 65-175 [address] [place] [address] [phone] Total Iron Binding Capacity 396 g/dL Normal 250-450 Transferrin %Saturation 6 % Low 12-57 Vitamin B12 And 04/14/2019 [facility] Vitamin B12 582 pg/mL Normal 193-986 Folate [address] [place] [address] [phone] Folic Acid 9.9 ng/mL Normal 3.1-17.5 Laboratory test 04/14/2019 [facility] Ferritin 10 ng/mL Low 26-388 finding [address] [place] [address] [phone] Comprehensive 04/14/2019 [facility] Glucose 112 mg/dL High 74-106 Metabolic Panel [address] [place] [address] [phone] BUN 9 mg/dL Normal 7-18 Creatinine 1.5 [...] 50 U/L Normal 45-117 Laboratory test 03/25/2019 [facility] Gamma Glutamyl 32 U/L Normal 5-85 8 finding [address] [place] [address] [phone] Erythropoietin (Epo), Serum 17.8 mIU/mL 2.6-18.5 9 Comprehensive 03/25/2019 [facility] Glucose 99 mg/dL Normal 74-106 Metabolic Panel [address] [place] [address] [phone] BUN 11 mg/dL Normal 7-18 Creatinine 1.3 [...] Phosphatase 52 U/L Normal 45-117 Laboratory 03/25/2019 [facility] Vitamin 35.9 30.0-100.0 11 test finding [address] D,25-Hydroxy ng/[place] [address] [phone] Vitamin B12 03/25/2019 [facility] Vitamin B12 492 Normal 193-[address] pg/[place] [address] [phone] Folic Acid 7.5 ng/mL Normal 3.1-17.5 CBC W/Automated 03/25/2019 [facility] White Blood 11.1 K/uL High 3.4-10.[address] [place] [address] [phone] Red Blood Count 5.69 M/uL Normal 4.20-5.80 [...] 33.0-73.0 Lymph % 17.5 % Low 20.0-42.0 Houghton % 8.5 % Normal 0.0-10.0 Eo% 2.3 % Normal 0.0-6.6 Bas% 0.4 % Normal 0.0-1.1 Immature Grans 0.4 % Normal 0.0-5.0 NRBC % 0.0 /100WBC < 10/ 100 WBC Neut# 7.88 K/uL High 1.8-7.0 Lymph # 1.94 K/uL Normal 1.0-4.0 [place]oughton # 0.94 K/uL High 0.0-0.8 Eos # 0.26 K/uL Normal 0.0-0.5 Baso # 0.04 K/uL Normal 0.0-0.1 Immature Grans Absolute 0.04 K/uL NRBC # 0.00 K/uL Reticulocyte 03/25/2019 [facility] Retic 28.5 pg Normal 27.9-37.0 Count,Automated [address] [facility] [place] [address] [phone] Retic % 1.7 % Normal 0.8-2.1 Absolute Retic 97 K/uL High 24-84 Immature Retic Fraction 16.1 % High 2.9-15.5 Laboratory test 03/25/2019 [facility] Ferritin 13 ng/mL Low 26-388 finding [address] [place] [address] [phone] Iron-Tibc-%Sat 03/25/2019 [facility] Serum Iron 32 g/dL Low 65-175 [address] [place] [address] [phone] Total Iron Binding Capacity 456 g/dL High 250-450 Transferrin %Saturation 7 % Low 12-57 Laboratory test 03/25/2019 [facility] LDH 147 U/L Normal 87-241 finding [address] [place] [address] [phone] Testosterone,Free 03/25/2019 [facility] Testostero >1500 High 264-916 12 /Weakly Bound [address] ne,Serum ng/[place] [address] [phone] Testosterone,%Free/Weakly BND 68.3 % High 9.0-46.0 13 Testosterone,Free Weakly Bound (SEE NOTE) ng/dL 40.0-250.0 14 Laboratory test 03/19/2019 [facility] Ferritin 13 ng/mL Low 26-388 15, 16 finding [address] [place] [address] [phone] Iron-Tibc-%Sat 03/19/2019 [facility] Serum Iron 33 g/dL Low 65-175 [address] [place] [address] [phone] Total Iron Binding Capacity 438 g/dL Normal 250-450 Transferrin %Saturation 8 % Low 12-57 Laboratory test 03/19/2019 [facility] Ferritin <pending> finding [address] [place], [place] [address] [phone] CBC W/Automated 03/19/2019 [facility] White Blood 6.3 K/uL Normal 3.4-1 Diff [address] Count 0.5 [place], [place] [address] [phone] Red Blood Count 5.99 M/uL High 4.20-5.80 [...] 33.0-73.0 Lymph % 29.3 % Normal 20.0-42.0 [place]oughton % 9.0 % Normal 0.0-10.0 Eo% 2.5 % Normal 0.0-6.6 Bas% 0.5 % Normal 0.0-1.1 Immature Grans 0.3 % Normal 0.0-5.0 NRBC % 0.0 /100WBC < 10/ 100 WBC Neut# 3.69 K/uL Normal 1.8-7.0 Lymph # 1.85 K/uL Normal 1.0-4.0 [place] # 0.57 K/uL Normal 0.0-0.8 Eos # 0.16 K/uL Normal 0.0-0.5 Baso # 0.03 K/uL Normal 0.0-0.1 Immature Grans Absolute 0.02 K/uL NRBC # 0.00 K/uL Hemoglobin/Hematocrit 03/12/2019 [facility] Hemoglobin 17.8 High 12.8-17.[address] gm/[place] [address] [phone] Hematocrit 55.3 % High 38.0-48.0 Laboratory test 03/05/2019 [facility] Ferritin 16 ng/mL Low 26-[address] [place] [address] [phone] Iron-Tibc-%Sat 03/05/2019 [facility] Serum Iron 28 g/dL Low 65-175 [address] [place], [place] [address] [phone] Total Iron Binding Capacity 404 g/dL Normal 250-450 Transferrin %Saturation 7 % Low 12-57 HIV Screen 4TH 03/04/2019 [facility] HIV Screen Non Non 17, [address] 4th [place] [address] Generation [phone] wRfx Hepatitis 03/04/2019 [facility] Hepatitis A Negative Negative Evaluation [address] Antibody IgM [place], [place] [address] [phone] HBsAg Screen [Ref Lab] Negative Negative Hepatitis B Core IgM Negative Negative HCV Signal/Cutoff ratio 0.1 s/corat 0.0-0.9 19 Liver Function 03/04/2019 [facility] Total Protein 7.0 g/dL Normal 6.4-8.2 Tests [address] [place], [place] [address] [phone] Albumin 3.6 g/dL Normal 3.4-5.0 Globulin 3.4 g/dL Normal 1.9-4.3 Alb/Glob 1.1 ratio Bilirubin,Total 0.5 mg/dL Normal 0.2-1.0 Bilirubin,Direct 0.1 mg/dL Normal 0.0-0.2 Bilirubin,Indirect 0.4 mg/dL Normal 0.0-0.9 Sgot/Ast 53 U/L High 15-37 SGPT/Alt 106 U/L High 12-78 Alkaline Phosphatase 50 U/L Normal 45-117 CBC W/Automated 03/04/2019 [facility] White Blood 10.8 K/uL High 3.4-10.[address] [place] [address] [phone] Red Blood Count 6.15 M/uL High 4.20-5.80 [...] 33.0-73.0 Lymph % 15.1 % Low 20.0-42.0 [place] % 6.5 % Normal 0.0-10.0 Eo% 1.2 % Normal 0.0-6.6 Bas% 0.2 % Normal 0.0-1.1 Immature Grans 0.5 % Normal 0.0-5.0 NRBC % 0.0 /100WBC < 10/ 100 WBC Neut# 8.30 K/uL High 1.8-7.0 Lymph # 1.63 K/uL Normal 1.0-4.0 [place] # 0.70 K/uL Normal 0.0-0.8 Eos # 0.13 K/uL Normal 0.0-0.5 Baso # 0.02 K/uL Normal 0.0-0.1 Immature Grans Absolute 0.05 K/uL NRBC # 0.00 K/uL Comprehensive Metabolic 03/04/2019 [facility] Glucose 110 mg/dL High 74-106 Panel [address] [place] [address] [phone] BUN 8 mg/dL Normal 7-18 Creatinine 1.5 mg/dL High 0.6-1.3 Glom Filtration Rate, Estimate 58 mL/min >60 If >60 mL/min >60 20 BUN/Creat 5.3 ratio Sodium 138 mmol/L Normal 136-145 Potassium 3.8 mmol/L Normal 3.5-5.1 Chloride 105 mmol/L Normal 98-107 Carbon Dioxide 25 mmol/L Normal 21-32 Anion Gap 8 mEq/L Normal 8-16 Calcium 8.7 mg/dL Normal 8.5-10.1 Chlam/GC/Trichomonas 03/04/2019 [facility] Ur Trichomonas NEGATIVE Negative PCR, Ur [address] vaginalis,[place] [address] [phone] Ur Chlamydia trachomatis,PCR Negative Negative Ur Neisseria gonorrhoeae,PCR Negative Negative 21 CBC W/Automated 02/19/2019 [facility] White 5.9 K/uL Normal 3.4-10.[address] [place] [address] Count [phone] Red Blood Count 6.02 M/uL High 4.20-5.80 [...] 33.0-73.0 Lymph % 27.3 % Normal 20.0-42.0 [place] % 9.9 % Normal 0.0-10.0 Eo% 4.0 % Normal 0.0-6.6 Bas% 0.5 % Normal 0.0-1.1 Immature Grans 0.3 % Normal 0.0-5.0 NRBC % 0.0 /100WBC < 10/ 100 WBC Neut# 3.44 K/uL Normal 1.8-7.0 Lymph # 1.62 K/uL Normal 1.0-4.0 [place] # 0.59 K/uL Normal 0.0-0.8 Eos # 0.24 K/uL Normal 0.0-0.5 Baso # 0.03 K/uL Normal 0.0-0.1 Immature Grans Absolute 0.02 K/uL NRBC # 0.00 K/uL Comprehensive Metabolic 02/19/2019 [facility] Glucose 118 mg/dL High 74-[address] [place] [address] [phone] BUN 9 mg/dL Normal 7-18 Creatinine 1.3 [...] 58 U/L Normal 45-117 Laboratory test 02/19/2019 [facility] Troponin-I < 0.015 [address] ng/[place] [address] [phone] CBC W/Automated 01/06/2019 [facility] White Blood 9.4 K/uL Normal 3.4-[address] Count 0.5 [place] [address] [phone] Red Blood Count 5.27 M/uL Normal 4.20-5.80 [...] 33.0-73.0 Lymph % 23.7 % Normal 20.0-42.0 [place] % 8.3 % Normal 0.0-10.0 Eo% 1.8 % Normal 0.0-6.6 Bas% 0.3 % Normal 0.0-1.1 Immature Grans 0.2 % Normal 0.0-5.0 NRBC % 0.0 /100WBC < 10/ 100 WBC Neut# 6.17 K/uL Normal 1.8-7.0 Lymph # 2.23 K/uL Normal 1.0-4.0 [place] # 0.78 K/uL Normal 0.0-0.8 Eos # 0.17 K/uL Normal 0.0-0.5 Baso # 0.03 K/uL Normal 0.0-0.1 Immature Grans Absolute 0.02 K/uL NRBC # 0.00 K/uL Iron-Tibc-%Sat 01/06/2019 [facility] Serum Iron 56 g/dL Low 65-175 [address] [place], [place] [address] [phone] Total Iron Binding Capacity 283 g/dL Normal 250-450 Transferrin %Saturation 20 % Normal 12-57 Laboratory test 01/06/2019 [facility] Ferritin 168 ng/mL Normal 26-388 finding [address] [place], [place] [address] [phone] Comprehensive 01/06/2019 [facility] Glucose 108 mg/dL High 74-106 Metabolic Panel [address] [place], [place] [address] [phone] BUN 13 mg/dL Normal 7-18 Creatinine 1.1 [...] Normal 45-117 1 D75.1 F55.3 E56.8 2 Aníbal [employer] DxI 800 Immunoassay System Values obtained with different assay methods or kits cannot be used interchangeably. Results cannot be interpreted as absolute evidence of the presence or absence of malignant disease. Performed at: - [facility] [id number] Slide Forming Machine Tender: Amarilys Espinoza MD, Phone: [phone] 3 POLYCYTHEMIA, HEAD/FACE PRESSURE 4 Note: Persistent [...] at www.kdoqi.org. 8 D45 R07.89 R22.9 9 [employer] DxI 800 Immunoassay System Values obtained with different assay methods or kits cannot be used interchangeably. Results cannot be interpreted as absolute evidence of the presence or absence of malignant disease. Performed at: [address] [id number] Slide Forming Machine Tender: Amarilys Espinoza MD, Phone: [phone] Performed at: [address] [id number] Slide Forming Machine Tender: Rashaun Lorenzo MD, Phone: [phone] 10 Note: Persistent reduction for 3 months [...] D deficiency has been defined by the [place] of Medicine and an Endocrine Society practice guideline as a level of serum 25-OH vitamin D less than 20 ng/mL (1,2). The Endocrine Society went on to further define vitamin D insufficiency as a level between 21 and 29 ng/mL (2). 1. IOM ([place] of Medicine). 2010. Dietary reference intakes for calcium and D. [place]: The National Academies Press. 2. Bola MF, Hair NC, Loy DRISCOLL, et al. Evaluation, treatment, and prevention of vitamin D deficiency: an Endocrine Society clinical practice guideline. JCEM. 2010; 96(7):1911-30. Performed at: [address] [id number] Slide Forming Machine Tender: Amarilys Espinoza MD, Phone: [phone] 12 Adult male reference interval is based on a population of healthy nonobese males (BMI <30) between 19 and 39 years old. Eric et.al. JCEM 2017,102;5481-2836. PMID: 75840054. 13 Results verified by repeat testing This test was developed and its performance characteristics determined by [employer]. It has not been cleared or approved by the Food and Drug Administration. 14 >999.9 Calculated value greater than reporting limitations. [address] ALFONSO 17 Z71.7 (R74.0 D45) 18 Performed at: RN - [facility] [address] [id number] Slide Forming Machine Tender: Amarilys Espinoza MD, Phone: [phone] 19 INFCE Result Units: s/co ratio Negative: < 0.8 Indeterminate: 0.8 - 0.9 Positive: > 0.9 The CDC recommends that a positive HCV antibody result be followed up with a HCV Nucleic Acid Amplification test (480288). Performed at: RN - [facility] [address] [id number] Slide Forming Machine Tender: Amarilys Espinoza MD, Phone: [phone] 20 Note: Persistent reduction for 3 months [...] at www.[email or web address]. 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 Alexandra Alfonso, DO 05/27/2019 E56.9 Vitamin deficiency, unspecified Alexandra Alfonso, DO 05/27/2019 J34.3 Hypertrophy of nasal turbinates Alexandra Alfonso, DO 04/14/2019 D75.1 Secondary polycythemia Alexandra Alfonso, DO 04/14/2019 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 Alexandra Alfonso, DO 04/14/2019 E53.9 Vitamin B deficiency Alexandra Alfonso, DO 04/14/2019 E56.8 Vitamin deficiency Alexandra Alfonso, DO 03/25/2019 D75.1 Secondary polycythemia Alexandra Alfonso, DO 03/25/2019 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 01/05/2019 D4Lorri Polycythemia vera Isatu Hollis M.D. 01/05/2019 F32.89 Other specified depressive episodes Isatu Hollis M.D. 01/05/2019 Z71.7 Human immunodeficiency virus [HIV] Isatu Hollis M.D. counseling Plan of Treatment Future Appointment(s):06/05/2019 8:30 am - Infusion Chair 7 at Infusion [email or web address]/07/2019 1:30 pm - Gerry Pierre FNP at [facility]06/01/2019 - Steven Roy MDH04.123 Dry eye syndrome of bilateral lacrimal glandsComments:- can contribute to blurred vision- recommend: - warm compresses - artificial tears both eyes: 1 drop each eye 4 times daily for 2 weeks- consider ointment at night; lubricating ointments include lacri-lube, systane, refresh pm- can consider punctal occlusion or restasisFollow up:please call with ? or xirbyxvW49.13 Myopia, bilateralComments:- provided rx for glasses Functional Status Functional Condition Comment Date Status Independent with all ADL's Active Mental Status Description No Information Available Referrals Refer to Dr Reason for Referral Status Appt Date Steven Roy MD CHANGE IN VISION Sent 06/01/2019 [address] [place] [address] [phone] Wild Cates MD FACC Closed 03/10/[address] [place] [address] [phone]
--- OUTSIDE RECORDS SUMMARY | 2019-07-02 08:36 | XMS REPORT | Continuity of Care Document ---
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 01/05/2019 D45 Polycythemia vera Isatu Hollis M.D. 01/05/2019 F32.89 Other specified depressive episodes Isatu Hollis M.D. 01/05/2019 Z71.7 Human immunodeficiency virus [HIV] Isatu Hollis M.D. counseling Plan of Treatment Future Appointment(s):07/10/2019 12:00 pm - Alexandra Alfonso DO at [facility]907/07/2019 1:30 pm - Gerry Pierre FNP at [facility] RD06/19/2019 - Steven Roy, MDD75.1 Secondary polycythemiaComments:- no sign of retinal vascular occlusion- no sign of retinal hemorrhage- no sign of optic neuropathy-the appearance of the optic nerve could be attributed to the overlying gliosis that is present on the right eye and can create a different appearance in color with left eye; left eye does appear perfused wellFollow up: please call with ? or [id number] Dry eye syndrome of bilateral lacrimal glandsComments:- can contribute to blurred vision- recommend: - warm compresses - artificial tears both eyes: 1 drop each eye 4 times daily for 2 weeks- consider ointment at night; lubricating ointments include lacri-lube, systane, refresh pm- can consider punctal occlusion or [id number] Myopia, bilateralComments:- glasses seem to help with distance; can continue as tolerated Functional Status Functional Condition Comment Date Status Independent with all ADL's Active Mental Status Description No Information Available Referrals Refer to Dr Reason for Referral Status Appt Date Steven Roy MD CHANGE IN VISION Sent 06/01/2019 [address] [place] [address] [phone] Wild Cates MD FAC Closed 03/10/[address] [place] [address] [place] [id number] [phone]
[2019-07-02 09:13] VITALS: BP 111/68
--- NOTE | 2019-07-02 09:30 | UC ---
General HPI - HPI Summary HPI Summary: Patient c/o left ear pain, decreased hearing and feeling like there is something in his ear. No issues with right ear. Started a few days ago after putting q-tips in his ear. No URI symptoms. No drainage from ear. No fever. Meds; reviewed - History of Current Complaint Chief Complaint: UCEar Stated Complaint: L EAR COMP Time Seen by Provider: 07/02/19 09:22 Pain Intensity: 3 - Allergy/Home Medications Allergies/Adverse Reactions: Allergies Allergy/AdvReac Type Severity Reaction Status Date / Time pollen extracts Allergy Unknown redness Verified 07/02/19 09:02 and swelling of eyes, sneezing Home Medications: Home Medications Aspirin 81 mg CHEW TAB* [Aspirin Low Dose TAB*] 81 mg PO DAILY 07/02/19 [ History Confirmed 07/02/19] Tenofovir/Emtricitab 100/150NF [Truvada 100 mg-150 mg Tablet] 1 each PO DAILY [History Confirmed 07/02/19] Valacyclovir HCl [Valtrex] 500 mg PO PRN 07/02/19 [History] PMH/Surg Hx/FS Hx/Imm Hx Previously Healthy: Yes - Surgical History Surgical History: Yes Surgery Procedure, Year, and Place: wisdom teeth extractions - Social History Alcohol Use: Rare Substance Use Type: None Smoking Status (MU): Current Some Day Smoker Type: Cigarettes Amount Used/How Often: 1 cig a day Review of Systems All Other Systems Reviewed And Are Negative: Yes Constitutional: Positive: Negative ENT: Positive: Ear Ache Physical Exam Triage Information Reviewed: Yes Appearance: Well-Appearing Vital Signs: Initial Vital Signs Temp 97.9 F 07/02/19 09:05 Pulse 74 07/02/19 09:05 Resp 16 07/02/19 09:05 BP 111/68 07/02/19 09:05 Pulse Ox 99 07/02/19 09:05 ENT: Positive: Pharynx normal, Other - left ear: cerumen impaction right ear: NL Neck: Positive: Supple, Nontender Respiratory: Positive: Lungs clear Course/Dx - Course Course Of Treatment: This is a 29 yr old with left ear cerumen impaction Left ear irrigation - unsuccessful with first attempt Colace drops placed in attempt to soften cerumen - second attempt unsuccessful Unable to get it with ear curette due to patient comfort and how impacted it is. Plan Recommend follow up with ENT - Dr. Sheppard is in [place] or with other ENT group - Dr. Velásquez Unsuccessful with getting cerumen removed Avoid Q-tip use to the ear - Diagnoses Provider Diagnosis: Cerumen impaction Discharge ED - Sign-Out/Discharge Documenting (check all that apply): Patient Departure All imaging exams completed and their final reports reviewed: No Studies - Discharge Plan Condition: Good Disposition: HOME Patient Education Materials: Cerumen Impaction (ED) Referrals: No Primary Care Phys,NOPCP [Primary Care Provider] - Sarthak Sheppard MD [Medical Doctor] - Jose Velásquez MD [Medical Doctor] - Additional Instructions: Recommend follow up with ENT - Dr. Sheppard is in [place] or with other ENT group - Dr. Velásquez Unsuccessful with getting cerumen removed Avoid Q-tip use - Billing Disposition and Condition Condition: GOOD Disposition: Home
[2019-07-02] MEDS ORDERED: Docusate LIQ* 100 MG/10 ML UDC OTIC ONE (09:57)
== END 2019-07-02 10:57 | disposition home or self-care (01) ==
LOC: UCCORT 08:22
DX: H61.21 Impacted cerumen, right ear (principal); F17.210 Nicotine dependence, cigarettes, uncomplicated; Z91.09 Other allergy status, other than to drugs and biological substances; Z79.82 Long term (current) use of aspirin
CPT/HCPCS: 99203; A9270-GY; G0463